=== PATIENT | male | born 1980 | race Hispanic/Latino ===

== ENCOUNTER → 2016-04-26 | Outpatient (CLI) | payer OTHER ==
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
== END | disposition home or self-care (01) ==
LOC: M RAD 09:14
PROVIDERS: ATTEND Surgery
DX: Z18.10 Retained metal fragments, unspecified (principal)